=== PATIENT | female | born 1970 | race Caucasian/White ===

== ENCOUNTER 2018-06-30 20:35 | Emergency (ER) | payer SELFPAY ==
[~2018-06-30] VITALS: Ht 172.7 cm; Wt 81.8 kg
[2018-06-30 21:39] VITALS: BP 125/89
[2018-06-30] MEDS ORDERED: methylPREDNISolone SOD SUCC 125 MG/2 ML VL IM ONE (21:45)
[2018-06-30] MEDS ORDERED: cefTRIAXone SOD 1,000 MG VL IM ONE (21:45)
== END 2018-06-30 22:59 | disposition home or self-care (01) ==
LOC: ER 20:39
DX: J06.9 Acute upper respiratory infection, unspecified (principal); Z88.0 Allergy status to penicillin
CPT/HCPCS: 94761; 96372; 99283; J0696; J2930

== ENCOUNTER 2018-10-25 15:42 | Emergency (ER) | payer MEDICAID ==
[~2018-10-25] VITALS: Ht 172.7 cm; Wt 72.6 kg
[2018-10-25 16:03] VITALS: BP 107/77
== END 2018-10-25 19:43 | disposition home or self-care (01) ==
LOC: ER 15:45
DX: L55.9 Sunburn, unspecified (principal); L84 Corns and callosities; Z91.14 Patient's other noncompliance with medication regimen; Z88.0 Allergy status to penicillin

== ENCOUNTER 2018-11-07 14:51 | Emergency (ER) | payer MEDICAID ==
[~2018-11-07] VITALS: Ht 172.7 cm; Wt 72.6 kg
[2018-11-07 15:00] VITALS: BP 111/70
[2018-11-07] MEDS ORDERED: IBUPROFEN 800 MG TAB PO ONE (19:30)
== END 2018-11-07 20:38 | disposition home or self-care (01) ==
LOC: ER 15:11
DX: M25.562 Pain in left knee (principal); M25.561 Pain in right knee; B35.9 Dermatophytosis, unspecified; R42 Dizziness and giddiness; R51 Headache; F17.210 Nicotine dependence, cigarettes, uncomplicated; F15.10 Other stimulant abuse, uncomplicated; J45.909 Unspecified asthma, uncomplicated; Z88.0 Allergy status to penicillin
CPT/HCPCS: 73562; 81002; 81025; 93005